=== PATIENT | female | born 1965 | race Caucasian/White ===

== ENCOUNTER 2017-02-11 23:06 | Emergency (ER) | payer OTHER ==
[~2017-02-11] VITALS: Ht 154.9 cm; Wt 76.0 kg
[~2017-02-11 23:06] MED LIST: 1-ME1LIQ PO
[2017-02-11 23:08] VITALS: BP 132/71; PULSE 88; RESP 16; TEMP 97.5; O2SAT 97
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
[2017-02-12] MEDS ORDERED: BACL10TA PO (01:05)
[2017-02-12] MEDS ORDERED: NAPR500T PO (01:05)
== END 2017-02-12 01:41 | disposition home or self-care (01) ==
LOC: NEPK 23:06
DX: S29.012A Strain of muscle and tendon of back wall of thorax, initial encounter (principal); R51 Headache; V49.40XA Driver injured in collision with unspecified motor vehicles in traffic accident, initial encounter; Y92.488 Other paved roadways as the place of occurrence of the external cause
CPT/HCPCS: 70450; 72072; 72125

== ENCOUNTER 2017-08-23 20:49 | Emergency (ER) | payer OTHER ==
[~2017-08-23 20:49] MED LIST changes: -1-ME1LIQ PO; +BACL10TA PO; +NAPR500T PO
[2017-08-23 20:53] VITALS: BP 138/64; PULSE 75; RESP 16; TEMP 98; O2SAT 95
[2017-08-24] MEDS ORDERED: PRED20 PO (17:44)
[2017-08-24] MEDS ORDERED: VALA1TAB PO (17:44)
[2017-08-24] MEDS ORDERED: HYDR-3533 PO (17:44)
== END 2017-08-23 23:00 | disposition left against medical advice (07) ==
LOC: NED 20:49
DX: R23.8 Other skin changes (principal); Z53.21 Procedure and treatment not carried out due to patient leaving prior to being seen by health care provider
CPT/HCPCS: 99281

== ENCOUNTER 2017-08-24 17:13 | Emergency (ER) | payer OTHER ==
[~2017-08-24] VITALS: Ht 154.9 cm; Wt 75.0 kg
[2017-08-24 17:15] VITALS: BP 171/73; PULSE 65; RESP 20; TEMP 98.7; O2SAT 98
[2017-08-24] MEDS ORDERED: HYDR-3533 PO (17:44)
[2017-08-24] MEDS ORDERED: PRED20 PO (17:44)
[2017-08-24] MEDS ORDERED: VALA1TAB PO (17:44)
--- NOTE | 2017-08-24 17:45 | PD ---
HPI Chief Complaint: Skin Problem Time Seen by Provider: 17:34 Travel History International Travel<30 days: No Contact w/Intl Traveler<30days: No Traveled to known affect area: No History of Present Illness HPI 52-year-old female presents to the emergency department for evaluation of a reddened rash on the lateral aspect of her right breast. Patient states she noticed this 3-4 days ago. Prior to that there was a burning itching sensation there. She is uncertain if she was bitten by an insect. Denies any other known exposures. No fever or chills. States it is intermittently painful and burning. She has no other symptoms to report this time. PFSH Past Medical History Diminished Hearing: No Hypertension: Yes Tubal Ligation: Yes Social History Alcohol Use: Yes (rarely) Tobacco Use: No Substance Use: No Allergies-Medications (Allergen,Severity, Reaction): Coded Allergies: aspirin (Verified Adverse Reaction, Intermediate, UPSETS STOMACH, 08/24/17 ) Reported Meds & Prescriptions Reported Meds & Active Scripts Active Prednisone 20 Mg Tab 20 Mg PO BID 5 Days Lortab (Hydrocodone-Acetaminophen) 5-325 Mg Tab 1 Tab PO Q6H PRN Valacyclovir (Valacyclovir HCl) 1,000 Mg Tab 1,000 Mg PO TID 7 Days Naproxen 500 Mg Tab 500 Mg PO BID 7 Days Baclofen 10 Mg Tab 10 Mg PO TID 7 Days Review of Systems Except as stated in HPI: all other systems reviewed are Neg Physical Exam Narrative GENERAL: Well-nourished, well-developed female patient, ambulatory and in no acute distress. SKIN: Focused skin assessment warm/dry. There are clustered vesicles on the lateral aspect of the right breast with erythematous bases. no purulence. No induration or fluctuation. HEAD: Normocephalic. EYES: No scleral icterus. No injection or drainage. NECK: Supple, trachea midline. No JVD or lymphadenopathy. CARDIOVASCULAR: Regular rate and rhythm without murmurs, gallops, or rubs. RESPIRATORY: Breath sounds equal bilaterally. No accessory muscle use. MUSCULOSKELETAL: No cyanosis, or edema. BACK: Nontender without obvious deformity. No CVA tenderness. Data Data Last Documented VS Vital Signs Date Time Temp Pulse Resp B/P (MAP) Pulse Ox O2 Delivery O2 Flow Rate FiO2 08/24/17 18:02 10/17/17 17:15 98.7 65 20 98 Room Air Orders Orders Ed Discharge Order (08/24/17 17:45) MDM Medical Decision Making Medical Screen Exam Complete: Yes Emergency Medical Condition: Yes Medical Record Reviewed: Yes Differential Diagnosis Shingles versus contact dermatitis versus folliculitis versus insect bite versus local reaction Narrative Course 52-year-old female presents to the emergency department for evaluation of a rash on the lateral right breast. Physical exam is consistent with shingles. She is counseled on care, will be prescribed valacyclovir. She is encouraged to follow-up with primary care provider and return with any acute worsening of symptoms. Diagnosis Primary Impression: Shingles Qualified Codes: B02.9 - Zoster without complications Referrals: Primary Care Physician Patient Instructions: General Instructions, Shingles (ED) Additional Instructions: Do not scratch the area Do not rupture the vesicles Follow-up with a primary care provider Return immediately with any acute worsening of symptoms Med/Other Pt SpecificInfo: Prescription(s) given Scripts Prednisone (Prednisone) 20 Mg Tab 20 MG PO BID for 5 Days, #10 TAB 0 Refills Prov: Holli Ferguson 08/24/17 Hydrocodone-Acetaminophen (Lortab) 5-325 Mg Tab 1 TAB PO Q6H Y for PAIN GREATER THAN 6, #12 TAB 0 Refills Prov: Holli Ferguson 08/24/17 Valacyclovir (Valacyclovir) 1,000 Mg Tab 1000 MG PO TID for Mgmt Viral Infection for 7 Days, #90 TAB 0 Refills Prov: Holli Ferguson 08/24/17 Disposition: 01 DISCHARGE HOME Condition: Stable Holli Ferguson Aug 24, 2017 17:45
== END 2017-08-24 18:03 | disposition home or self-care (01) ==
LOC: NEPK 17:13
DX: B02.9 Zoster without complications (principal)
CPT/HCPCS: 99284